=== PATIENT | female | born 1985 | race African-American/Black ===

== ENCOUNTER 2021-05-13 18:30 | Emergency (ER) | payer OTHER ==
[~2021-05-13] VITALS: Ht 165.1 cm; Wt 78.9 kg
[~2021-05-13 18:30] MED LIST: APAP/CODEINE ELI5 M1 OR; FLONASE 0.05%50 MCG NASAL; GUAIFENESIN-CODE5 ML PO; IBUPROFEN 800800 M1; NORCO 5-325 TA1 EACH PO; PREDNISONE 20 M20 MG PO; TESSALON PERLE100 MG; VITAMIN C + RO500 MG PO; [UNRECOGNIZED DRUG - REMARK]
[2021-05-13 18:43] LABS: URINE BILIRUBIN NEGATIVE (Negative); URINE BLOOD NEGATIVE (Negative); URINE CLARITY CLEAR; URINE COLOR YELLOW; URINE GLUCOSE-RANDOM* NEGATIVE (Negative); URINE KETONES NEGATIVE (Negative); URINE LEUKOCYTES-REFLEX TRACE (Negative); URINE NITRITE-REFLEX NEGATIVE (Negative); URINE PROTEIN (DIPSTICK) NEGATIVE (Negative); URINE SPECIFIC GRAVITY 1.015 (1.005-1.035); URINE UROBILINOGEN 0.2 E.U./dl (0.2-1.0)
[2021-05-13 20:18] LABS: ABSOLUTE NEUTROPHILS 2.5 thou/uL (1.4-8.2); BASOPHILS 1.1 % (0.0-2.0); EOSINOPHILS 2.6 % (0.0-3.0); HEMATOCRIT 37.3 % (37.0-47.0); HEMOGLOBIN 12.3 gm/dL (12.0-15.0); LYMPHOCYTES 38.9 % (24.0-44.0); MCH 28.8 pg (26.0-34.0); MCHC 32.9 g/dL (28.0-37.0); MCV 87.7 fL (80.0-100.0); MONOCYTES 7.1 % (1.0-8.0); PLATELET COUNT 325 thou/uL (150-400); POLYS 50.3 % (36.0-66.0); RBC 4.25 mil/uL (4.20-5.00); RDW 13.3 % (10.5-14.5); WBC 4.9 thou/uL (4.0-11.0)
[2021-05-13 20:22] LABS: CALCIUM 9.1 mg/dL (8.5-10.1); CREATININE 0.8 mg/dL (0.6-1.0); POTASSIUM 3.4 mmol/L (3.5-5.1)
[2021-05-13 20:39] LABS: ALBUMIN 3.6 g/dL (3.4-5.0); TOTAL BILIRUBIN 0.4 mg/dL (0.2-1.0); TOTAL PROTEIN 7.6 g/dL (6.4-8.2)
[2021-05-13] MEDS ORDERED: NAPROSYN500 MG PO (21:03)
[2021-05-13] MEDS ORDERED: NORCO5 PO (21:03)
[2021-05-13 21:20] VITALS: BP 120/87
== END 2021-05-13 21:25 | disposition home or self-care (01) ==
LOC: ER 18:30
PROVIDERS: Emergency Medicine; Nurse Practitioner Family
DX: N83.292 Other ovarian cyst, left side (principal); Z98.890 Other specified postprocedural states; Z79.899 Other long term (current) drug therapy